=== PATIENT | female | born 1960 | race Caucasian/White ===

== ENCOUNTER 2018-10-12 10:29 | Emergency (ER) | payer BC, OTHER ==
[2018-10-12 10:44] VITALS: BP 135/75
[2018-10-12] MEDS: Cyclobenzaprine 10 MG Tab PO ONE (11:47)
[2018-10-12] MEDS: Ketorolac 10 MG Tab PO ONE (12:09)
--- NOTE | 2018-10-12 12:44 | EDM.PDOC ---
ED HPI GENERAL MEDICAL PROBLEM - General Chief Complaint: Lower Extremity Injury/Pain Stated Complaint: leg pain Time Seen by Provider: 10/12/18 10:46 Source of Information: Reports: Patient History Limitations: Reports: No Limitations - History of Present Illness INITIAL COMMENTS - FREE TEXT/NARRATIVE: Pt fell and landed on her left side Has pain in low back, left hip and left knee Knee has increased pain with weight bearing or movement No LOC Did not hit head No other specific complaints Onset: Sudden Duration: Getting Worse Location: Reports: Back, Lower Extremity, Left Quality: Reports: Ache, Throbbing Severity: Moderate Improves with: Reports: Immobilization Worsens with: Reports: Movement Associated Symptoms: Reports: No Other Symptoms Left Leg Pain Score (Numeric/FACES): 9 Lower Back Pain Score (Numeric/FACES): 9 - Related Data Allergies Allergy/AdvReac Type Severity Reaction Status Date / Time No Known Allergies Allergy Verified 10/12/18 10:32 Home Meds: Home Meds Melatonin/Pyridoxine HCl (B6) [Melatonin 10 mg Tablet] 1 each PO BEDTIME PRN 06/15 [History] Budesonide/Formoterol [Symbicort 160-4.5 MCG] 2 puff INH BID 10/12/18 [History] Past Medical History Respiratory History: Reports: COPD 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: Reports: Social & Family History - Tobacco Use Smoking Status *Q: Current Every Day Smoker Years of Tobacco use: 40 Packs/Tins Daily: 10 Used Tobacco, but Quit: No Second Hand Smoke Exposure: Yes - Caffeine Use Caffeine Use: Reports: Soda - Recreational Drug Use Recreational Drug Use: No Review of Systems - Review of Systems Review Of Systems: See Below Respiratory: Reports: No Symptoms Cardiovascular: Reports: No Symptoms GI/Abdominal: Reports: No Symptoms Musculoskeletal: Reports: Back Pain, Joint Pain ED EXAM, GENERAL - Physical Exam Exam: See Below General Appearance: Moderate Distress Back Exam: Other (Tender diffusely in lumbar area Left hip minimally tender Left knee without swelling or deformity Increased pain with ROM) Neurological: Alert, Oriented, Normal Cognition, No Motor/Sensory Deficits Course - Vital Signs Last Recorded V/S: Last Vital Signs Temp 36.5 C 10/12/18 10:30 Pulse 95 10/12/18 10:30 Resp 18 10/12/18 10:30 BP 135/75 10/12/18 10:30 Pulse Ox 96 10/12/18 10:30 - Orders/Labs/Meds Orders: Active Orders 24 hr Category Date Time Status Femur Min 2V Lt [CR] Stat Exams 10/12/18 10:46 Taken Lumbar Spine wo Cont [CT] Stat Exams 10/12/18 10:48 Taken Pelvis 1V or 2V [CR] Stat Exams 10/12/18 10:46 Taken Meds: Medications Discontinued Medications Generic Name Dose Route Start Last Admin Trade Name Michael PRN Reason Stop Dose Admin Cyclobenzaprine HCl 10 mg 10/12/18 11:42 10/12/18 11:47 Flexeril PO 10/12/18 11:43 10 mg ONETIME ONE Administration Ketorolac Tromethamine 10 mg 10/12/18 12:04 10/12/18 12:09 Toradol PO 10/12/18 12:05 10 mg ONETIME ONE Administration - Re-Assessments/Exams Free Text/Narrative Re-Assessment/Exam: 10/12/18 12:42 Ct and xray without acute fracture Departure - Departure Time of Disposition: 13:00 Disposition: Home, Self-Care 01 Clinical Impression: Knee pain, acute Qualifiers: Laterality: left Qualified Code(s): M25.562 - Pain in left knee - Discharge Information *PRESCRIPTION DRUG MONITORING PROGRAM REVIEWED*: Not Applicable *COPY OF PRESCRIPTION DRUG MONITORING REPORT IN PATIENT PB: Not Applicable Instructions: Knee Pain, Adult Referrals: Vi Muhammad PA-C [Primary Care Provider] - - My Orders Last 24 Hours: My Active Orders 10/12/18 10:46 Femur Min 2V Lt [CR] Stat Pelvis 1V or 2V [CR] Stat 10/12/18 10:48 Lumbar Spine wo Cont [CT] Stat - Assessment/Plan Last 24 Hours: My Active Orders 10/12/18 10:46 Femur Min 2V Lt [CR] Stat Pelvis 1V or 2V [CR] Stat 10/12/18 10:48 Lumbar Spine wo Cont [CT] Stat
== END 2018-10-12 13:05 | disposition home or self-care (01) ==
LOC: LL.ED 10:29
DX: M25.562 Pain in left knee (principal); M54.5 Low back pain; F17.210 Nicotine dependence, cigarettes, uncomplicated; J44.9 Chronic obstructive pulmonary disease, unspecified; Z79.899 Other long term (current) drug therapy
CPT/HCPCS: 72131; 72170; 73552; 99284; A9270

== ENCOUNTER 2020-11-13 10:25 | Observation (INO) | payer BC ==
[2020-11-13] MEDS ORDERED: Famotidine 20 MG/2 ML SDV IVPUSH ONE (10:28)
[2020-11-13] MEDS ORDERED: Ticagrelor 90 MG Tab PO ONE (10:28)
[2020-11-13] MEDS ORDERED: Sodium Chloride 0.9% 10 ML Syringe FLUSH PRN ×2 (10:28→13:14)
--- NOTE | 2020-11-13 10:28 | EDM.PDOC ---
ED HPI GENERAL MEDICAL PROBLEM - General Chief Complaint: General Stated Complaint: CP Time Seen by Provider: 11/13/20 10:20 Source of Information: Reports: Patient, Old Records ([facility] chart/EMR) History Limitations: Reports: No Limitations - History of Present Illness INITIAL COMMENTS - FREE TEXT/NARRATIVE: The patient was brought to the emergency room via private automobile by her for evaluation of multiple complaints, which have been present since before in 2019. She does feel that she probably had Covid, in July 2020, although this was not confirmed by any testing. She has already received her Covid immunizations as below. The patient also denies any recent fever, cough, wheezing, etc., although nonspecific dyspnea during the last several months. She also complains of intermittent left-sided chest paresthesias/questionable pressure during the last several months with radiation to the left shoulder and arm and also legs bilaterally, including at time of initial clinic evaluation as below and on arrival to this facility with no radiation of her chest pain. The patient was evaluated at the [facility] in [place] shortly prior to arrival with 3 baby aspirin chew and swallow and 1 sublingual nitroglycerin tablet given in that facility prior to transfer to our emergency room for further evaluation. She did not notice any improvement of her symptoms with this treatment. The patient denies heart flutter, orthostasis, orthopnea, diaphoresis, or any other anginal type symptoms, although she has had some intermittent nonspecific dizziness and possible decreased exercise tolerance, which she has related to her emphysema in the past. No recent history of abdominal pain, heartburn, nausea, diarrhea, melena, gross hematochezia, or any food intolerance, including fatty foods, etc. with normal bowel movement yesterday. She did have a bilateral frontal headache secondary to her allergies earlier this morning with 1 Aleve tablet taken at home prior to clinic evaluation as above. No recent history of gross hematuria, colic, or the UTI symptoms. Note that the patient initially rated her chest discomfort at 7/10 with improvement to 4/10 at time of arrival. Her blood pressures have been somewhat elevated in recent weeks with systolic blood pressures in the 160s by her history. Onset: Other (As above) Duration: Getting Worse, Intermittent, Improving Location: Reports: Chest, Radiates to (Left shoulder, arm, and legs bilater ally? Paresthesias) Quality: Reports: Same as Previous Episode Severity: Moderate Improves with: Reports: None Worsens with: Reports: None Context: Reports: Other (As above). Denies: Sick Contact, Trauma Associated Symptoms: Reports: Chest Pain, Headaches, Shortness of Breath. Denies: Confusion, Cough, Diaphoresis, Fever/Chills, Loss of Appetite, Malaise, Nausea/Vomiting, Rash, Seizure, Syncope, Weakness Treatments [employer]: Reports: Aspirin, Other Medication(s) (As above) Left Chest Pain Score (Numeric/FACES): 4 - Related Data Allergies Allergy/AdvReac Type Severity Reaction Status Date / Time No Known Allergies Allergy Verified 11/13/20 10:49 Home Meds: Home Meds Melatonin/Pyridoxine HCl (B6) [Melatonin 10 mg Tablet] 1 each PO BEDTIME 10/12/13 [History] Budesonide/Formoterol [Symbicort 160-4.5 MCG] 2 puff INH BID 10/12/18 [History] Past Medical History HEENT History: Reports: Allergic Rhinitis, Cataract, Impaired Vision, Sinusitis, Other (See Below). Denies: Glaucoma, Hard of Hearing, Macular Degeneration, Otitis Media, Retinal Detachment Other HEENT History: Patient continues to wear glasses despite previous LASIK surgery as below. She is currently being evaluated for possible cataract surgery. Cardiovascular History: Reports: Afib, Arrhythmia, CAD, Hypertension, TN, Other (See Below). Denies: Aneurysm, Blood Clots/VTE/DVT, Cardiomyopathy, Heart Failure, Heart Murmur, High Cholesterol, PVD, Syncope Other Cardiovascular History: Newly diagnosed atrial fibrillation, complete right bundle branch block, and and possible TN on 07/10/2012 with negative heart catheterization as below. Respiratory History: Reports: Bronchitis, Recurrent, COPD, Intubation, Previous, Pulmonary Fibrosis, Other (See Below). Denies: Asthma, Intubation, Difficult, PE, Pneumonia, Recurrent, Pneumothorax, Sleep Apnea, TB Other Respiratory History: Stable benign right upper lobe pulmonary nodule by CT scans. Gastrointestinal History: Reports: Colon Polyp, Other (See Below). Denies: Bowel Obstruction, Celiac Disease, Cholelithiasis, Chronic Constipation, Chronic Diarrhea, Diverticulosis, Fecal Incontinence, Gastritis, GERD, GI Bleed, Hepatitis, Hiatal Hernia, Inflammatory Bowel Disease, Irritable Bowel Syndrome, Jaundice, Pancreatitis, PUD Other Gastrointestinal History: Multiple colonic polyps x3 removed of unknown character in 1999. Genitourinary History: Reports: Renal Calculus, Other (See Below). Denies: Acute Renal Failure, Chronic Renal Insuffiency, STD, Urinary Incontinence, UTI, Recurrent Other Genitourinary History: Urolithiasis with side unknown and spontaneous passage in 2016. MEDICAL SURGERY NURSE History: Reports: Dysfunctional Uterine Bleeding, Fibroids, Polycystic Ovaries, . Denies: Endometriosis, Spontaneous : 1 Para: 1 LMP (Approximate): Other (See Below) Other MEDICAL SURGERY NURSE History: Surgical menopause secondary to dysfunctional uterine bleeding/fibroids at age 38. Full term without complications during pregnancies or deliveries Musculoskeletal History: Reports: Arthritis, Back Pain, Chronic, Fracture, Neck Pain, Chronic, Osteoarthritis, Osteoporosis, Other (See Below). Denies: Amputation, Gout, RA, SLE Other Musculoskeletal History: Left knee tibial plateau fracture in 2019 not requiring any surgery. Fifth left toe fracture in 2010 without surgery. Neurological History: Reports: Headaches, Chronic, Migraines. Denies: Alzheimers Disease, Cerebral Aneurysms, Concussion, Head Trauma, MS, Neuropathy, Diabetic, Neuropathy, Peripheral, Parkinson's, Seizure, TIA, Vertigo Psychiatric History: Reports: Anxiety, Depression. Denies: Abuse, Victim of, ADD, ADHD, Addiction, Psych Hospitalization(s), PTSD, Suicide Attempt Endocrine/Metabolic History: Reports: Obesity/BMI 30+, Osteopenia, Osteoporosis. Denies: Diabetes, Gestational, Diabetes, Type I, Diabetes, Type II, Diabetes Mellitus, Type 3c, Hypothyroidism, IDDM Hematologic History: Denies: Anemia, Blood Transfusion(s), Iron Deficiency Immunologic History: Reports: None. Denies: AIDS, HIV, SLE Oncologic (Cancer) History: Reports: None. Denies: Basal Cell Carcinoma, Breast, Cervix, Colon, Hodgkin's Lymphoma, Leukemia, Lymphoma, Malignant Melanoma, Non-Hodgkin's Lymphoma, Ovarian, Squamous Cell Carcinoma, Uterine Dermatologic History: Reports: None. Denies: Eczema, Psoriasis - Infectious Disease History Infectious Disease History: Reports: Chicken Pox (At age 18), Novel Coronavirus (Unconfirmed in July 2020 with second Pfizer COVID-19 immunization in July 2020.). Denies: C-Difficile, Measles, Meningitis, Mononucleosis, MRSA, Mumps, Pertussis (Whooping Cough), Rheumatic Fever, Rubella, Scarlet Fever, Shingles, TB - Past Surgical History Head Surgeries/Procedures: Reports: None HEENT Surgical History: Reports: LASIK, Oral Surgery, Other (See Below). Denies: Adenoidectomy, Cataract Surgery, Eye Surgery, Laser Surgery, Myringotomy w Tube(s), Naso-Sinus Surgery, Tonsillectomy Other HEENT Surgeries/Procedures: LASIK in 2004. [place] teeth extraction x3 in her mid 20s. Additional teeth extractions. Cardiovascular Surgical History: Reports: None. Denies: Varicose Respiratory Surgical History: Reports: None. Denies: Thoracentesis GI Surgical History: Reports: Colonoscopy, Polypectomy, Other (See Below). Denies: Appendectomy, Cholecystectomy, EGD, Hernia, Abdominal, Hernia, Inguinal, Hernia Repair/Other Other GI Surgeries/Procedures: Colonoscopy in 1999 with polypectomy x3 with negative follow-up colonoscopy in 2009. Female Surgical History: Reports: Hysterectomy, Salpingo-Oophorectomy, Other (See Below). Denies: Breast Biopsy, Section, D&C, Lithotripsy/ESWL, Tubal Ligation, Ureteral Stent Other Female Surgeries/Procedures: Complete hysterectomy including bilateral salpingo-oophorectomy at age 38(1999) as above. Endocrine Surgical History: Reports: None. Denies: Thyroid Biopsy Neurological Surgical History: Reports: None. Denies: C-Spine, Discectomy, Laminectomy, Lumbar Spine, Sacral Spine, Spinal Fusion, Thoracic Spine, Vertebroplasty Musculoskeletal Surgical History: Reports: None. Denies: Arthroscopic Procedure, Carpal Tunnel, Ganglion Cyst, Joint Replacement, ORIF, Shoulder Surgery Oncologic Surgical History: Reports: None Dermatological Surgical History: Reports: None - Past Imaging History Past Imaging History: Reports: Angiography (Negative heart catheterization in 07/10/2012.), Carotid US (Negative on 01/13/2017.), CAT Scan ( Lumbar spine on 10/12/2018. Chest on 09/14/2015 and 02/13/2013) Social & Family History - Family History HEENT: Reports: Cataract, Other (See Below). Denies: Glaucoma, Macular Degeneration, Retinal Detachment Other HEENT Family History: Parents with cataracts. Cardiac: Reports: Arrhythmia, CAD, Other (See Below). Denies: Afib, Aneurysm, Blood Clots/VTE/DVT, High Cholesterol, Hypertension, TN, PVD/COD, Syncope Other Cardiac Family History: Paternal uncle with unknown type of heart disease. Mother with unknown type of arrhythmia and possible heart disease. Respiratory: Reports: Pneumothorax, Other (See Below). Denies: Asthma, COPD, PE, Sleep Apnea Other Respiratory Family Hisory: Postoperative pneumothorax secondary to lung biopsy and patient's mother. GI: Reports: Colon Polyps, Other (See Below). Denies: Celiac Disease, Cholelithiasis, GERD, GI bleed, Hepatitis, Inflammatory Bowel Disease, Irritable Bowel Syndrome, Pancreatitis, PUD Other GI Family History: Mother with colon cancer as below. : Reports: Renal Disease/Insufficiency, Other (See Below). Denies: Renal Calculus Other Family History: Father with renal insufficiency. OBGYN: Reports: None. Denies: Endometriosis, Recurrent Spontaneous Musculoskeletal: Reports: Arthritis, Osteoarthritis, SLE, Other (See Below). Denies: Gout, RA Other Musculoskeletal Family History: Mother with osteoarthritis and SLE Neurological: Reports: Alzheimers Disease, CVA, Dementia, Other (See Below) Other Neurological Family History: Mother with possible beginning organic brain syndrome. Paternal uncle with fatal CVA in his 60s. Psychiatric: Reports: None. Denies: Abuse, Victim of, ADD, ADHD, Anxiety, Depression, Psych Hospitalization(s), PTSD, Suicide Attempt Endocrine/Metabolic: Reports: Hypothyroidism, Other (See Below). Denies: Diabetes, Gestational, Diabetes, Type I, Diabetes, type II, Diabetes Mellitus, Type 3c, IDDM Other Endocrine/Metabolic Family History: Mother with hypothyroidism. Hematologic: Reports: SLE. Denies: Anemia Other Hematologic Family History: Mother with SLE as above. Immunologic: Reports: None. Denies: AIDS, HIV, SLE Dermatologic: Denies: Eczema, Psoriasis Oncologic: Reports: Breast, Colon, Lung, Metastatic, Ovarian, Other (See Below). Denies: Cervix, Hodgkin's Lymphoma, Leukemia, Lymphoma, Non-Hodgkin's Lymphoma, Skin, Uterine Other Oncologic Family History: Mother with recurrent cancers of various types including colon cancer in her 50s, breast cancer in her 60s, and ovarian cancer at age 69. Maternal uncle with fatal lung cancer at age 60 with maternal aunts x2 with fatal lung cancer in their 70s with all of the smoking cigarettes. Father with unknown type of skin cancer - Tobacco Use Tobacco Use Status *Q: Current Every Day Tobacco User Tobacco Use Within Last Twelve Months: No, Cigarettes Years of Tobacco use: 44 Packs/Tins Daily: 0.5 Packs/Tins Daily Comment: Started smoking at age 16 with maximum use of 1.5 packs/day. Used Tobacco, but Quit: No Smoking Cessation Information Provided To Patient: Yes Second Hand Smoke Exposure: No Second Hand Smoke Education Provided: No - Caffeine Use Caffeine Use: Reports: Soda (6 sodas per day). Denies: Coffee, Energy Drinks, Tea - Alcohol Use Alcohol Use History: No Days Per Week of Alcohol Use: 0 Number of Drinks Per Day: 0 Number of Drinks Per Day Comment: No previous DWIs, problems with alcohol abuse, etc. 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 ED EXAM, GENERAL - Physical Exam Exam: See Below Exam Limited By: No Limitations General Appearance: Alert, WD/WN, No Apparent Distress, Anxious (Moderate) Eye Exam: Bilateral Eye: EOMI, Normal Inspection (No vertigo or nystagmus. Patient is wearing glasses.), PERRL Ears: Normal External Exam, Normal Canal, Hearing Grossly Normal, Normal TMs Nose: Normal Inspection, Normal Mucosa, No Blood Throat/Mouth: Normal Inspection, Normal Lips, Normal Teeth, Normal Gums, Normal Oropharynx, Normal Voice, No Airway Compromise. No: Dysphagia, Perioral Cyanosis Head: Atraumatic, Normocephalic. No: Facial Swelling, Facial Tenderness, Sinus Tenderness Neck: Normal Inspection, Supple, Non-Tender, Full Range of Motion. No: Carotid Bruit, Lymphadenopathy (L), Lymphadenopathy (R), Thyromegaly Respiratory/Chest: No Respiratory Distress, Lungs Clear, Normal Breath Sounds, No Accessory Muscle Use, Chest Non-Tender. No: Pleural Rub, Retractions Cardiovascular: Normal Peripheral Pulses, Regular Rate, Rhythm, No Edema, No Gallop, No JVD, No Murmur, No Rub. No: Gallop/S3, Gallop/S4, Friction Rub Peripheral Pulses: 2+: Radial (L), Radial (R), Dorsalis Pedis (L), Dorsalis Pedis (R) GI/Abdominal: Normal Bowel Sounds, Soft, Non-Tender, No Organomegaly, No Distention, No Abnormal Bruit, No Mass, Other (Obese). No: Pelvis Stable, Guarding (Female) Exam: Deferred Rectal (Female) Exam: Deferred Back Exam: Full Range of Motion, Other (Moderate scoliosis). No: CVA Tenderness (L), CVA Tenderness (R), Muscle Spasm, Paraspinal Tenderness, Vertebral Tenderness Extremities: Normal Inspection, Normal Range of Motion, Non-Tender, No Pedal Edema, Normal Capillary Refill. No: Elis's Sign Neurological: Alert, Oriented, CN II-XII Intact, Normal Cognition, Normal Gait, Normal Reflexes (Negative Babinski's), No Motor/Sensory Deficits Psychiatric: Anxious (Moderate), Depressed Mood (Mild) Skin Exam: Warm, Dry, Intact, Normal Color, No Rash. No: Diaphoretic, Wound/Incision Lymphatic: No Adenopathy Course - Vital Signs Last Recorded V/S: Last Vital Signs Temp 36.7 C 11/13/20 10:25 Pulse 73 11/13/20 12:00 Resp 20 11/13/20 12:00 BP 145/78 H 11/13/20 12:00 Pulse Ox 98 11/13/20 12:00 Vital Signs - 24 hr 11/13/20 11/13/20 11/13/20 10:25 10:30 10:45 Temperature [ 36.7 C Oral] Pulse, 76 78 75 Peripheral [ Pulse Oximetry] Respiratory 18 16 18 Rate Blood Pressure 161/89 H 144/84 H 141/82 H [Left Upper Arm ] O2 Sat by Pulse 96 96 96 Oximetry 11/13/20 11/13/20 11/13/20 11:00 11:15 11:30 Temperature [ Oral] Pulse, 70 73 73 Peripheral [ Pulse Oximetry] Respiratory 16 17 19 Rate Blood Pressure 133/73 126/73 133/74 [Left Upper Arm ] O2 Sat by Pulse 96 96 96 Oximetry 11/13/20 11/13/20 11:45 12:00 Temperature [ Oral] Pulse, 70 73 Peripheral [ Pulse Oximetry] Respiratory 20 20 Rate Blood Pressure 142/85 H 145/78 H [Left Upper Arm ] O2 Sat by Pulse 98 98 Oximetry - Orders/Labs/Meds Orders: Active Orders 24 hr Category Date Time Status Cardiac Monitoring [RC] . DIRECTED Care 11/13/20 10:28 Active EKG Documentation Completion [RC] ASDIRECTED Care 11/13/20 10:28 Active Oxygen Therapy, ED [RC] PRN Care 11/13/20 10:28 Active Peripheral IV Care [RC] . DIRECTED Care 11/13/20 10:28 Active Pulse Oximetry [RC] CONTINUOUS Care 11/13/20 10:28 Active Up With Assistance [RC] PFP Care 11/13/20 10:28 Active Vital Signs [RC] PFP Care 11/13/20 10:28 Active Nothing per Oral Now Diet [DIET] Diet 11/13/20 Breakfast Active Chest 1V Frontal [CR] Stat Exams 11/13/20 10:28 Taken CORONAVIRUS COVID-19 CHELA [MOLEC] Stat Lab 11/13/20 11:40 Received Sodium Chloride 0.9% [Saline Flush] Med 11/13/20 10:28 Active 10 ml FLUSH ASDIRECTED PRN Obtain Past Medical Record [OM.PC] Urgent Oth 11/13/20 10:28 Active Peripheral IV Insertion Adult [OM.PC] Stat Oth 11/13/20 10:28 Ordered Resuscitation Status Stat Resus Stat 11/13/20 10:28 Ordered Medication Orders Sodium Chloride (Sodium Chloride 0.9% 10 Ml Syringe) 10 ml FLUSH ASDIRECTED PRN PRN Reason: Keep Vein Open Labs: Laboratory Tests 11/13/20 11/13/20 11/13/20 Range/Units 10:35 10:35 10:35 WBC 6.8 (4.0-10.2) K/uL RBC 5.15 H (3.77-5.09) M/uL Hgb 15.7 H (11.7-15.5) g/dL Hct 47.3 H (34.0-46.0) % MCV 91.8 (84.0-98.0) fL MCH 30.5 (28.2-33.3) pg MCHC 33.2 (31.7-36.0) g/dL RDW 13.7 (11.2-14.1) % Plt Count 248 (150-350) K/uL Neut % (Auto) 54.2 (45.0-80.0) % Lymph % (Auto) 31.9 (10.0-50.0) % [place] % (Auto) 12.3 (2.0-14.0) % Eos % (Auto) 1.3 (0.0-5.0) % Baso % (Auto) 0.3 (0.0-2.0) % Neut # (Auto) 3.66 (1.40-7.00) K/uL Lymph # (Auto) 2.15 (0.50-3.50) K/uL [place] # (Auto) 0.83 (0.00-1.00) K/uL Eos # (Auto) 0.09 (0.00-0.50) K/uL Baso # (Auto) 0.02 (0.00-0.20) K/uL PT 9.4 L (9.5-12.0) SEC INR 0.9 APTT 25.4 (24.5-32.8) SEC D-Dimer, Quantitative < 100 (0-400) ng/mL Sodium (136-145) mmol/L Potassium (3.5-5.1) mmol/L Chloride (98-107) mmol/L Carbon Dioxide (21.0-32.0) mmol/L BUN (7-18) mg/dL Creatinine (0.51-1.17) mg/dL Est Cr Clr Drug Dosing Estimated GFR (MDRD) mL/min Glucose (70-99) mg/dL Lactic Acid (0.4-2.0) mmol/L Uric Acid (2.6-7.2) mg/dL Calcium (8.5-10.1) mg/dL Magnesium (1.8-2.4) mg/dL Total Bilirubin (0.2-1.0) mg/dL AST (15-37) U/L ALT (12-78) U/L Alkaline Phosphatase (46-116) IU/L Creatine Kinase (26-308) U/L Creatine Kinase Index (0.0-2.5) % CK-MB (CK-2) (0.00-3.60) ng/mL Troponin I (0.000-0.056) ng/mL NT-Pro-B Natriuret Pep (0-125) pg/mL Total Protein (6.4-8.2) g/dL Albumin (3.4-5.0) g/dL TSH, Ultra Sensitive (0.358-3.740) mIU/mL 11/13/20 11/13/20 Range/Units 10:35 10:35 WBC (4.0-10.2) K/uL RBC (3.77-5.09) M/uL Hgb (11.7-15.5) g/dL Hct (34.0-46.0) % MCV (84.0-98.0) fL MCH (28.2-33.3) pg MCHC (31.7-36.0) g/dL RDW (11.2-14.1) % Plt Count (150-350) K/uL Neut % (Auto) (45.0-80.0) % Lymph % (Auto) (10.0-50.0) % [place] % (Auto) (2.0-14.0) % Eos % (Auto) (0.0-5.0) % Baso % (Auto) (0.0-2.0) % Neut # (Auto) (1.40-7.00) K/uL Lymph # (Auto) (0.50-3.50) K/uL [place] # (Auto) (0.00-1.00) K/uL Eos # (Auto) (0.00-0.50) K/uL Baso # (Auto) (0.00-0.20) K/uL PT (9.5-12.0) SEC INR APTT (24.5-32.8) SEC D-Dimer, Quantitative (0-400) ng/mL Sodium 139 (136-145) mmol/L Potassium 4.1 (3.5-5.1) mmol/L Chloride 103 (98-107) mmol/L Carbon Dioxide 26.6 (21.0-32.0) mmol/L BUN 12 (7-18) mg/dL Creatinine 0.71 (0.51-1.17) mg/dL Est Cr Clr Drug Dosing TNP Estimated GFR (MDRD) > 60 mL/min Glucose 95 (70-99) mg/dL Lactic Acid 1.2 (0.4-2.0) mmol/L Uric Acid 2.8 (2.6-7.2) mg/dL Calcium 8.8 (8.5-10.1) mg/dL Magnesium 2.2 (1.8-2.4) mg/dL Total Bilirubin 0.4 (0.2-1.0) mg/dL AST 22 (15-37) U/L ALT 21 (12-78) U/L Alkaline Phosphatase 106 (46-116) IU/L Creatine Kinase 183 (26-308) U/L Creatine Kinase Index 2.3 (0.0-2.5) % CK-MB (CK-2) 4.30 H (0.00-3.60) ng/mL Troponin I 0.000 (0.000-0.056) ng/mL NT-Pro-B Natriuret Pep 105 (0-125) pg/mL Total Protein 7.6 (6.4-8.2) g/dL Albumin 4.1 (3.4-5.0) g/dL TSH, Ultra Sensitive 2.138 (0.358-3.740) mIU/mL Meds: Medications Generic Name Dose Route Start Last Admin Trade Name Freq PRN Reason Stop Dose Admin Sodium Chloride 10 ml 11/13/20 10:28 Sodium Chloride 0.9% 10 Ml Syringe FLUSH ASDIRECTED PRN Keep Vein Open Discontinued Medications Generic Name Dose Route Start Last Admin Trade Name Freq PRN Reason Stop Dose Admin Aspirin 81 mg 11/13/20 10:32 11/13/20 10:50 Aspirin 81 Mg Tab.Chew PO 11/13/20 10:33 81 mg ONETIME ONE Administration Famotidine 40 mg 11/13/20 10:28 11/13/20 10:50 Famotidine 20 Mg/2 Ml Sdv IVPUSH 11/13/20 10:29 40 mg ONETIME ONE Administration Ticagrelor 180 mg 11/13/20 10:28 11/13/20 10:50 Ticagrelor 90 Mg Tab PO 11/13/20 10:29 180 mg ONETIME ONE Administration - Radiology Interpretation Free Text/Narrative:: patient monitor shows normal sinus rhythm with heart rate in the 70s to 80s with no ectopy or arrhythmia Chest x-ray, portable, shows moderate COPD and pulmonary fibrotic changes with moderate scoliosis and arthritic types changes but no cardiomegaly, CHF, pulmonary infiltrates, pneumothorax, etc. Departure - Departure Time of Disposition: 12:35 Disposition: Refer to Observation Condition: Good Clinical Impression: Mixed anxiety depressive disorder, Elevated CK-MB level, Tobacco abuse counseling, Polycythemia Chest pain Qualifiers: Chest pain type: precordial pain Qualified Code(s): R07.2 - Precordial pain COPD (chronic obstructive pulmonary disease) Qualifiers: COPD type: emphysema Emphysema type: panlobular Qualified Code(s): J43.1 - Panlobular emphysema - Discharge Information *PRESCRIPTION DRUG MONITORING PROGRAM REVIEWED*: Not Applicable *COPY OF PRESCRIPTION DRUG MONITORING REPORT IN PATIENT PB: Not Applicable Referrals: Vi Muhammad PA-C [Primary Care Provider] - Forms: ED Department Discharge Care Plan Goals: See plan Sepsis Event Note (ED) - Focused Exam Vital Signs: Vital Signs Temp Pulse Resp BP Pulse Ox 11/13/20 12:00 73 20 145/78 H 98 11/13/20 11:45 70 20 142/85 H 98 11/13/20 11:30 73 19 133/74 96 11/13/20 11:15 73 17 126/73 96 11/13/20 11:00 70 16 133/73 96 11/13/20 10:45 75 18 141/82 H 96 11/13/20 10:30 78 16 144/84 H 96 11/13/20 10:25 36.7 C 76 18 161/89 H 96 - Problem List & Annotations (1) Chest pain SNOMED Code(s): 61578616 Code(s): R07.9 - CHEST PAIN, UNSPECIFIED Status: Acute Priority: High Current Visit: Yes Annotation/Comment:: Chest pain protocol was initiated immediately upon patient's arrival to this facility. Note initial medications were given at the [facility] in [place] prior to patient's arrival. Various therapeutic options were discussed with the patient and her with the patient initially threatening to leave A, however after much extensive discussion she does agree to be placed in observation status. Initiate standard rule out TN orders. Secondary patient's previous history of hypertension and possible coronary artery disease she will be started on Imdur. Recommend discharge on activity restrictions until cardiac status can be determined. Cardiolite stress test with me in this facility next week, if her blood pressures are under good control, otherwise the patient should follow-up initially with her regular provider. Cardiology consultation depending on her clinical course. Note elevated CK-MB with otherwise normal cardiac enzymes including cardiac index. Qualifiers: Chest pain type: precordial pain Qualified Code(s): R07.2 - Precordial pain (2) Mixed anxiety depressive disorder SNOMED Code(s): 217623909 Code(s): F41.8 - OTHER SPECIFIED ANXIETY DISORDERS Status: Chronic Priority: Medium Current Visit: Yes Annotation/Comment:: Moderate control based on today's exam. Significant increase stressors at work. Further medication adjustment by her regular provider. (3) Elevated CK-MB level SNOMED Code(s): 251503776 Code(s): R74.8 - ABNORMAL LEVELS OF OTHER SERUM ENZYMES Status: Acute Priority: High Current Visit: Yes Annotation/Comment:: As above (4) COPD (chronic obstructive pulmonary disease) SNOMED Code(s): 91320464 Code(s): J44.9 - CHRONIC OBSTRUCTIVE PULMONARY DISEASE, UNSPECIFIED Status: Acute Priority: Medium Current Visit: Yes Annotation/Comment:: Significant COPD and pulmonary fibrosis with recent decreased exercise tolerance. PFTs are recommended. Tobacco cessation strongly encouraged with initiation of nicotine patch. Tobacco cessation information to be provided at discharge. Consider echocardiogram depending on her clinical course to rule out pulmonary hypertension. The patient does get yearly influenza boosters including this past season. Qualifiers: COPD type: emphysema Emphysema type: panlobular (5) Tobacco abuse counseling SNOMED Code(s): 403170573, 596095672, 165543822 Code(s): Z71.6 - TOBACCO ABUSE COUNSELING Status: Chronic Priority: Medium Current Visit: Yes Annotation/Comment:: As above (6) Polycythemia SNOMED Code(s): 871072799 Code(s): D75.1 - SECONDARY POLYCYTHEMIA Status: Acute Priority: Medium Current Visit: Yes Onset Date: 11/13/20 Annotation/Comment:: Likely secondary to her tobacco use. - Problem List Review Problem List Initiated/Reviewed/Updated: Yes - My Orders Last 24 Hours: My Active Orders 11/13/20 Breakfast Nothing per Oral Now Diet [DIET] 11/13/20 10:28 Cardiac Monitoring [RC] . DIRECTED EKG Documentation Completion [RC] ASDIRECTED Oxygen Therapy, ED [RC] PRN Peripheral IV Care [RC] . DIRECTED Pulse Oximetry [RC] CONTINUOUS Up With Assistance [RC] PFP Vital Signs [RC] PFP Chest 1V Frontal [CR] Stat Sodium Chloride 0.9% [Saline Flush] 10 ml FLUSH ASDIRECTED PRN Obtain Past Medical Record [OM.PC] Urgent Peripheral IV Insertion Adult [OM.PC] Stat Resuscitation Status Stat 11/13/20 11:40 CORONAVIRUS COVID-19 CHELA [MOLEC] Stat - Assessment/Plan Admission H&P: Please use this note as an admission H&P Last 24 Hours: My Active Orders 11/13/20 Breakfast Nothing per Oral Now Diet [DIET] 11/13/20 10:28 Cardiac Monitoring [RC] . DIRECTED EKG Documentation Completion [RC] ASDIRECTED Oxygen Therapy, ED [RC] PRN Peripheral IV Care [RC] . DIRECTED Pulse Oximetry [RC] CONTINUOUS Up With Assistance [RC] PFP Vital Signs [RC] PFP Chest 1V Frontal [CR] Stat Sodium Chloride 0.9% [Saline Flush] 10 ml FLUSH ASDIRECTED PRN Obtain Past Medical Record [OM.PC] Urgent Peripheral IV Insertion Adult [OM.PC] Stat Resuscitation Status Stat 11/13/20 11:40 CORONAVIRUS COVID-19 CHELA [MOLEC] Stat Assessment:: As above Plan: As above. Extensive precautions were given to the patient and her , who are in agreement with the treatment plan. The patient's condition is stable enough for observation status and general supervision. banquet server physician assumes care in the a.m.
[2020-11-13] MEDS ORDERED: Aspirin 81 MG Tab.Chew PO ONE (10:32)
[2020-11-13 10:58] LABS: PTT,PARTIAL THROMBOPLSTIN TIME 25.4 SEC (24.5-32.8)
[2020-11-13 11:10] LABS: CHLORIDE,CL 103 mmol/L (98-107); SODIUM,NA 139 mmol/L (136-145)
[2020-11-13] MEDS ORDERED: Temazepam 15 MG Cap PO PRN (13:14)
[2020-11-13] MEDS ORDERED: Enoxaparin 40 MG/0.4 ML Syringe SUBCUT SCH (14:00)
[2020-11-13] MEDS: Nicotine 21 MG/24 Hr Patch TRDERM SCH (14:55)
[2020-11-13] MEDS: Citalopram 20 MG Tab PO SCH (15:00)
[2020-11-13] MEDS ORDERED: Isosorbide Mononitrate 30 MG Tab.ER PO SCH (18:00)
[2020-11-13] MEDS: Formoterol/Mometasone 200-5 MCG 8.8 GM Inhaler IH SCH (19:28)
[2020-11-14] MEDS: Acetaminophen 325 MG Tab PO PRN ×2 (03:29→08:39)
[2020-11-14 07:54] LABS: HEMOGLOBIN A1C 5.6 % (4.3-5.7)
[2020-11-14] MEDS ORDERED: Remove Patch NICOTINE PATCH TRDERM SCH (08:00)
[2020-11-14] MEDS: Nicotine 21 MG/24 Hr Patch TRDERM SCH (08:04)
[2020-11-14 08:11] LABS: CHLORIDE,CL 105 mmol/L (98-107); SODIUM,NA 139 mmol/L (136-145)
[2020-11-14] MEDS: Citalopram 20 MG Tab PO SCH (08:17)
[2020-11-14] MEDS: Formoterol/Mometasone 200-5 MCG 8.8 GM Inhaler IH SCH (08:17)
[2020-11-14 11:52] VITALS: BP 122/72; PULSE 70
--- NOTE | 2020-11-14 13:54 | PCM.DCSUM1 ---
Discharge Summary - Hospital Course Brief History: Admitted for rule out ME protocol. Diagnosis: Stroke: No - Discharge Data Discharge Date: 11/14/20 Discharge Disposition: Home, Self-Care 01 Condition: Good - Referral to Home Health Primary Care Physician: Vi Muhammad PA-C - Discharge Diagnosis/Problem(s) (1) Chest pain SNOMED Code(s): 70580787 ICD Code: R07.9 - CHEST PAIN, UNSPECIFIED Status: Acute Priority: High Current Visit: Yes Problem Details: Chest pain protocol was initiated immediately upon patient's arrival to this facility. Negative troponins throughout stay. Left chest/shoulder tingling and discomfort improved today. Reports that she has had tingling in left arm and both legs for last year and was told she probably had neuropathy. Left shoulder discomfort feels similar. Also noted by patient that a lot of this seemed to start after she had suspected Covid infection. Note initial medications were given at the [facility] in [place] prior to patient's arrival. No worse with deep breathing or arm/shoulder movement. Various therapeutic options were discussed with the patient and her with the patient initially threatening to leave AMA, however after much extensive discussion she does agree to be placed in observation status. Initiated standard rule out ME orders. Secondary patient's previous history of hypertension and possible coronary artery disease she was started on Imdur. She is not wanting to continue it after discharge. Recommend discharge on activity restrictions until cardiac status can be determined. Cardiolite stress test with advised in this facility next week, if her blood pressures are under good control, otherwise the patient should follow-up initially with her regular provider. Note elevated CK-MB. Patient was outside doing yardwork and mowing/actively engaged in physical activity which may have influenced this lab. Qualifiers: Chest pain type: precordial pain Qualified Code(s): R07.2 - Precordial pain (2) COPD (chronic obstructive pulmonary disease) SNOMED Code(s): 61049619 ICD Code: J44.9 - CHRONIC OBSTRUCTIVE PULMONARY DISEASE, UNSPECIFIED Status: Chronic Priority: Medium Current Visit: Yes Problem Details: Smoker. Complains of increased SOB over past year. Again, worsened after she suspects she had Covid. Significant COPD and pulmonary fibrosis with recent decreased exercise tolerance. PFTs are recommended. Tobacco cessation strongly encouraged with initiation of nicotine patch. Tobacco cessation information to be provided at discharge. The patient does get yearly influenza boosters including this past season. Qualifiers: COPD type: emphysema Emphysema type: panlobular Qualified Code(s): J43.1 - Panlobular emphysema (3) Elevated CK-MB level SNOMED Code(s): 002107526 ICD Code: R74.8 - ABNORMAL LEVELS OF OTHER SERUM ENZYMES Status: Acute Priority: High Current Visit: Yes Problem Details: As above (4) Polycythemia SNOMED Code(s): 558083229 ICD Code: D75.1 - SECONDARY POLYCYTHEMIA Status: Acute Priority: Medium Current Visit: Yes Onset Date: 11/13/20 Problem Details: Likely secondary to her tobacco use. (5) Mixed anxiety depressive disorder SNOMED Code(s): 100396814 ICD Code: F41.8 - OTHER SPECIFIED ANXIETY DISORDERS Status: Chronic Priority: Medium Current Visit: Yes Problem Details: Moderate control based on today's exam. Significant increase stressors at work. Further medication adjustment by her regular provider. (6) Tobacco abuse counseling SNOMED Code(s): 783482248, 782233998, 247019160 ICD Code: Z71.6 - TOBACCO ABUSE COUNSELING Status: Chronic Priority: Medium Current Visit: Yes Problem Details: As above (7) History of multiple pulmonary nodules SNOMED Code(s): 794740794 ICD Code: Z87.898 - PERSONAL HISTORY OF OTHER SPECIFIED CONDITIONS Status: Chronic Priority: Medium Current Visit: Yes Problem Details: Is under surveillance by Oncology in [place] due to multiple nodules. Has CT studies [id number]. Due this December. Recommended patient to contact her providers to see if that needs to be scheduled earlier given the increased sensation of SOB. (8) Hiatal hernia SNOMED Code(s): 18392323 ICD Code: K44.9 - DIAPHRAGMATIC HERNIA WITHOUT OBSTRUCTION OR GANGRENE Status: Chronic Priority: Medium Current Visit: Yes Problem Details: May be contributing to intermittent chest discomfort patient sometimes has across chest. May be refluxing. This could also be contributor to lung changes/chronic lung inflammation - Patient Summary/Data Hospital Course: Unremarkable hospital course. Vital signs overall stable. Troponins negative. Left shoulder/upper chest discomfort improved today. May be component of stress and also cannot rule out Covid association as some of her complaints are frequently noted with long-haulers. Long time spent visiting with patient in regards to smoking cessation and lifestyle/diet changes that could be helpful. Does not want to be started on any prescription medications at this time. Recommended to schedule stress test as well as PFTs. To follow up closely with PCP. Precautions reviewed prior to discharge. - Patient Instructions Diet: Anti-Inflammatory Activity: No Strenuous Activities (until receives stress testing) Driving: May Drive Today Showering/Bathing: May Shower Other/Special Instructions: Follow up with primary provider for recheck. Recommend scheduling pulmonary function testing and stress testing. Both can be performed here locally at this hospital. Diet/lifestyle recommendations as discussed and try to quit smoking! Return to ER if you have any sudden worsening problems. Vitamin D with K 5000units daily, Mag Glycinate 250mg daily. Good quality fish oil 1-2 grams daily ([employer] is good ) - Discharge Plan *PRESCRIPTION DRUG MONITORING PROGRAM REVIEWED*: Not Applicable *COPY OF PRESCRIPTION DRUG MONITORING REPORT IN PATIENT PB: Not Applicable Home Medications: Home Meds Melatonin/Pyridoxine HCl (B6) [Melatonin Tr 10 mg Tablet] 1 each PO BEDTIME 10/12/13 [History] Budesonide/Formoterol [Symbicort 160-4.5 MCG] 2 puff INH BID 10/12/18 [History] Forms: ED Department Discharge Referrals: Vi Muhammad PA-C [Primary Care Provider] - - Discharge Summary/Plan Comment DC Time >30 min.: No - General Info Date of Service: 11/14/20 Admission Dx/Problem (Free Text: atypical chest pain Subjective Update: Patient has no acute changes/complaints. Continues to feel tired. Some tingling sensation left chest persists. She has had tingling feelings in that left arm and both legs for months. Fatigue also for months. Says she is at her baseline. Functional Status: Reports: Pain Controlled, Tolerating Diet, Ambulating, Urinating. Denies: New Symptoms - Review of Systems General: Reports: Fatigue (chronic) HEENT: Reports: Headaches (has had chronic daily headache since she thinks she had Covid. ) Pulmonary: Reports: Shortness of Breath (Chronic/worse since she had Covid). Denies: Pleuritic Chest Pain, Cough, Sputum, Hemoptysis Cardiovascular: Reports: Dyspnea on Exertion (Chronic/worse since she had Covid), Other (tingling discomfort left upper chest/anterior shoulder). Denies: Palpitations, Edema, Lightheadedness Gastrointestinal: Reports: No Symptoms Genitourinary: Reports: No Symptoms Musculoskeletal: Reports: Other (no acute changes) Skin: Reports: No Symptoms Neurological: Reports: Other (tingling left shoulder/arm and bilateral legs) Psychiatric: Reports: No Symptoms - Patient Data Vitals - Most Recent: Last Vital Signs Temp 36.7 C 11/14/20 11:51 Pulse 70 11/14/20 11:51 Resp 18 11/14/20 11:51 BP 122/72 11/14/20 11:51 Pulse Ox 94 L 11/14/20 11:51 Weight - Most Recent: 68.175 kg I&O - Last 24 hours: Intake & Output 11/13/20 11/14/20 11/14/20 22:59 06:59 14:59 Intake Total 540 Output Total 1400 1000 Balance -1400 -460 Lab Results - Last 24 hrs: Laboratory Results - last 24 hr 11/13/20 11/13/20 11/14/20 Range/Units 14:05 19:57 07:35 WBC 7.7 (4.0-10.2) K/uL RBC 4.87 (3.77-5.09) M/uL Hgb 14.8 (11.7-15.5) g/dL Hct 44.9 (34.0-46.0) % MCV 92.2 (84.0-98.0) fL MCH 30.4 (28.2-33.3) pg MCHC 33.0 (31.7-36.0) g/dL RDW 13.7 (11.2-14.1) % Plt Count 230 (150-350) K/uL Neut % (Auto) 58.9 (45.0-80.0) % Lymph % (Auto) 29.1 (10.0-50.0) % York % (Auto) 9.9 (2.0-14.0) % Eos % (Auto) 1.6 (0.0-5.0) % Baso % (Auto) 0.5 (0.0-2.0) % Neut # (Auto) 4.51 (1.40-7.00) K/uL Lymph # (Auto) 2.23 (0.50-3.50) K/uL York # (Auto) 0.76 (0.00-1.00) K/uL Eos # (Auto) 0.12 (0.00-0.50) K/uL Baso # (Auto) 0.04 (0.00-0.20) K/uL Sodium (136-145) mmol/L Potassium (3.5-5.1) mmol/L Chloride (98-107) mmol/L Carbon Dioxide (21.0-32.0) mmol/L BUN (7-18) mg/dL Creatinine (0.51-1.17) mg/dL Est Cr Clr Drug Dosing mL/min Estimated GFR (MDRD) mL/min Glucose (70-99) mg/dL Hemoglobin A1c (4.3-5.7) % Calcium (8.5-10.1) mg/dL Total Bilirubin (0.2-1.0) mg/dL AST (15-37) U/L ALT (12-78) U/L Alkaline Phosphatase (46-116) IU/L Creatine Kinase 170 168 (26-308) U/L Creatine Kinase Index 2.2 2.3 (0.0-2.5) % CK-MB (CK-2) 3.70 H 3.80 H (0.00-3.60) ng/mL Troponin I 0.000 0.000 (0.000-0.056) ng/mL Total Protein (6.4-8.2) g/dL Albumin (3.4-5.0) g/dL Triglycerides (30-150) mg/dL Cholesterol (100-200) mg/dL LDL Cholesterol, Calc (0-100) mg/dL HDL Cholesterol (40-60) mg/dL 11/14/20 11/14/20 Range/Units 07:35 07:35 WBC (4.0-10.2) K/uL RBC (3.77-5.09) M/uL Hgb (11.7-15.5) g/dL Hct (34.0-46.0) % MCV (84.0-98.0) fL MCH (28.2-33.3) pg MCHC (31.7-36.0) g/dL RDW (11.2-14.1) % Plt Count (150-350) K/uL Neut % (Auto) (45.0-80.0) % Lymph % (Auto) (10.0-50.0) % York % (Auto) (2.0-14.0) % Eos % (Auto) (0.0-5.0) % Baso % (Auto) (0.0-2.0) % Neut # (Auto) (1.40-7.00) K/uL Lymph # (Auto) (0.50-3.50) K/uL York # (Auto) (0.00-1.00) K/uL Eos # (Auto) (0.00-0.50) K/uL Baso # (Auto) (0.00-0.20) K/uL Sodium 139 (136-145) mmol/L Potassium 3.9 (3.5-5.1) mmol/L Chloride 105 (98-107) mmol/L Carbon Dioxide 27.1 (21.0-32.0) mmol/L BUN 14 (7-18) mg/dL Creatinine 0.72 (0.51-1.17) mg/dL Est Cr Clr Drug Dosing 86.84 mL/min Estimated GFR (MDRD) > 60 mL/min Glucose 86 (70-99) mg/dL Hemoglobin A1c 5.6 (4.3-5.7) % Calcium 8.5 (8.5-10.1) mg/dL Total Bilirubin 0.4 (0.2-1.0) mg/dL AST 21 (15-37) U/L ALT 20 (12-78) U/L Alkaline Phosphatase 86 (46-116) IU/L Creatine Kinase 175 (26-308) U/L Creatine Kinase Index 2.3 (0.0-2.5) % CK-MB (CK-2) 4.00 H (0.00-3.60) ng/mL Troponin I 0.000 (0.000-0.056) ng/mL Total Protein 6.5 (6.4-8.2) g/dL Albumin 3.3 L (3.4-5.0) g/dL Triglycerides 103 (30-150) mg/dL Cholesterol 166 (100-200) mg/dL LDL Cholesterol, Calc 77 (0-100) mg/dL HDL Cholesterol 68 H (40-60) mg/dL Med Orders - Current: Current Medications Acetaminophen (Acetaminophen 325 Mg Tab) 650 mg PO Q4H PRN PRN Reason: Pain Last Admin: 11/14/20 08:39 Dose: 650 mg Documented by: Citalopram Hydrobromide (Citalopram 20 Mg Tab) 10 mg PO DAILY [facility] Last Admin: 11/14/20 08:17 Dose: Not Given Documented by: Enoxaparin Sodium (Enoxaparin 40 Mg/0.4 Ml Syringe) 40 mg SUBCUT Q24H [facility] Last Admin: 11/13/20 14:56 Dose: 40 mg Documented by: Isosorbide Mononitrate (Isosorbide Mononitrate 30 Mg Tab.Er) 30 mg PO QPM [facility] Last Admin: 11/13/20 18:07 Dose: 30 mg Documented by: Miscellaneous Information (Remove Patch Nicotine Patch) 1 ea TRDERM DAILY [facility] Last Admin: 11/14/20 08:05 Dose: 1 ea Documented by: Mometasone Furoate/Formoterol Fumar (Formoterol/Mometasone 200-5 Mcg 8.8 Gm Inhaler) 2 puff IH BID@0800,2000 [facility] Last Admin: 11/14/20 08:17 Dose: Not Given Documented by: Nicotine (Nicotine 21 Mg/24 Hr Patch) 21 mg TRDERM DAILY [facility] Last Admin: 11/14/20 08:04 Dose: 21 mg Documented by: Sodium Chloride (Sodium Chloride 0.9% 10 Ml Syringe) 10 ml FLUSH ASDIRECTED PRN PRN Reason: Keep Vein Open Last Admin: 11/14/20 08:07 Dose: 10 ml Documented by: Sodium Chloride (Sodium Chloride 0.9% 10 Ml Syringe) 10 ml FLUSH Q12HR PRN PRN Reason: Keep Vein Open Temazepam (Temazepam 15 Mg Cap) 15 mg PO BEDTIME PRN PRN Reason: Insomnia Last Admin: 11/13/20 23:41 Dose: 15 mg Documented by: Discontinued Medications Aspirin (Aspirin 81 Mg Tab.Chew) 81 mg PO ONETIME ONE Stop: 11/13/20 10:33 Last Admin: 11/13/20 10:50 Dose: 81 mg Documented by: Famotidine (Famotidine 20 Mg/2 Ml Sdv) 40 mg IVPUSH ONETIME ONE Stop: 11/13/20 10:29 Last Admin: 11/13/20 10:50 Dose: 40 mg Documented by: Ticagrelor (Ticagrelor 90 Mg Tab) 180 mg PO ONETIME ONE Stop: 11/13/20 10:29 Last Admin: 11/13/20 10:50 Dose: 180 mg Documented by: - Exam General: Reports: Alert, Oriented, Cooperative, No Acute Distress HEENT: Reports: Pupils Equal, Pupils Reactive, EOMI, Mucous Membr. Moist/[place] Neck: Reports: Supple Lungs: Reports: Clear to Auscultation, Normal Respiratory Effort Cardiovascular: Reports: Regular Rate, Regular Rhythm GI/Abdominal Exam: Normal Bowel Sounds, Soft, Non-Tender, No Distention Back Exam: Denies: CVA Tenderness (L), CVA Tenderness (R), Muscle Spasm Extremities: Normal Range of Motion, No Pedal Edema, Normal Capillary Refill Skin: Reports: Warm, Dry Neurological: Reports: No New Focal Deficit Psy/Mental Status: Reports: Alert, Normal Affect, Normal Mood #1 Interpretation EKG Date: 11/14/20 Time: 07:41 Rhythm: Other (sinus bradycardia) Rate (Beats/Min): 57 [place]: RAD-Right [place] Deviation P-Wave: Present QRS: Normal ST-T: Normal QT: Normal
== END 2020-11-14 14:25 | disposition home or self-care (01) ==
LOC: LL.ED 10:25 → LL.MS 12:43
PROVIDERS: ADMIT Family Medicine; ATTEND Family Medicine
DX: R07.2 Precordial pain (principal); J43.1 Panlobular emphysema; R74.8 Abnormal levels of other serum enzymes; D75.1 Secondary polycythemia; F41.8 Other specified anxiety disorders; K44.9 Diaphragmatic hernia without obstruction or gangrene; Z71.6 Tobacco abuse counseling; Z87.09 Personal history of other diseases of the respiratory system; I25.10 Atherosclerotic heart disease of native coronary artery without angina pectoris; I10 Essential (primary) hypertension; I25.2 Old myocardial infarction; E66.9 Obesity, unspecified; F17.210 Nicotine dependence, cigarettes, uncomplicated; Z20.822 Contact with and (suspected) exposure to COVID-19
CPT/HCPCS: 36415; 71045; 80053; 80061; 82550; 82553; 83036; 83605; 83735; 83880; 84443; 84484; 84550; 85025; 85379; 85610; 85730; 93005; 96372; 96374; 99217; 99220; 99285-25; A9270-GY; G0378; J1650; J3490; U0002

== ENCOUNTER 2022-05-07 17:07 | Emergency (ER) | payer BC ==
[2022-05-07 17:12] VITALS: BP 163/83; PULSE 75
[2022-05-07] MEDS ORDERED: Morphine 2 MG/ML SYRINGE IM ONE (17:35)
== END 2022-05-07 18:40 | disposition home or self-care (01) ==
LOC: LL.ED 17:07
DX: S80.11XA Contusion of right lower leg, initial encounter (principal); I25.10 Atherosclerotic heart disease of native coronary artery without angina pectoris; I10 Essential (primary) hypertension; I25.2 Old myocardial infarction; F17.210 Nicotine dependence, cigarettes, uncomplicated; Z79.899 Other long term (current) drug therapy; Z90.710 Acquired absence of both cervix and uterus; Z86.16 Personal history of COVID-19; W20.8XXA Other cause of strike by thrown, projected or falling object, initial encounter
CPT/HCPCS: 73562-RT; 96372; 99283; J2270

== ENCOUNTER 2023-08-03 07:50 | Day surgery (SDC) | payer BC ==
[2023-08-03] MEDS ORDERED: Sodium Chloride 0.9% 10 ML Syringe FLUSH PRN (08:00)
[2023-08-03] MEDS: Lactated Ringers 1,000 ML IV SCH (08:16)
[2023-08-03] MEDS ORDERED: Midazolam 1 MG/ML 2 ML SDV ONE (08:36)
[2023-08-03] MEDS ORDERED: Propofol 200 MG/20 ML SDV ONE (08:37)
[2023-08-03] MEDS ORDERED: Lidocaine 2% 5 ML SDV ONE (09:10)
[2023-08-03] MEDS ORDERED: Propofol 200 MG/20 ML SDV IVPUSH ONE (09:10)
[2023-08-03 10:06] VITALS: BP 121/75; PULSE 93
== END 2023-08-03 09:51 | disposition home or self-care (01) ==
LOC: LL.SDS 07:50
PROVIDERS: ATTEND Surgery
DX: K31.89 Other diseases of stomach and duodenum (principal); J44.9 Chronic obstructive pulmonary disease, unspecified; K21.9 Gastro-esophageal reflux disease without esophagitis; R63.4 Abnormal weight loss; Z68.20 Body mass index [BMI] 20.0-20.9, adult
CPT/HCPCS: 00731; 43239; J2250; J2704; J7120; J3490